=== PATIENT | male | born 1950 | race Caucasian/White ===

== ENCOUNTER 2016-10-05 15:32 | Inpatient (IN) | payer BC ==
[~2016-10-05] VITALS: Ht 177.8 cm; Wt 80.4 kg
[2016-10-05 16:52] LABS: HEMATOCRIT 47.9 % (39.0-50.0); HEMOGLOBIN 15.6 g/dl (14.0-18.0); IMMATURE GRANULOCYTES 0.6 % (0.0-1.0); MEAN CELL VOLUME 93.9 fL CALC (80.0-100.0); MEAN CORPUSCULAR HGB 30.6 pG CALC (26.0-32.0); MEAN CORPUSCULAR HGB CONC 32.6 g/L CALC (32.0-36.0); NEUT# 10.96 thou/uL (1.82-7.42); RED BLOOD COUNT 5.1 mill/uL (4.70-6.10); RED CELL DISTRI WIDTH 12.8 % (11.5-15.5)
[2016-10-05 17:09] LABS: URINE BILIRUBIN - DIPSTICK NEGATIVE (NEGATIVE); URINE BLOOD DIPSTICK TRACE-INTACT (NEGATIVE); URINE CLARITY CLEAR; URINE COLOR YELLOW; URINE GLUCOSE - DIPSTICK NEGATIVE (NEGATIVE); URINE KETONE NEGATIVE (NEGATIVE); URINE NITRITE - DIPSTICK NEGATIVE (Negative); URINE PH 5.5 (4.5-8.0); URINE PROTEIN - DIPSTICK NEGATIVE (NEG-TRACE); URINE SPECIFIC GRAVITY 1.025; URINE UROBILINOGEN - DIPSTICK 0.2 E.U./dL (0.2)
[2016-10-05 17:25] LABS: ALBUMIN 3.7 g/dL (3.2-5.0); CALCIUM 9.1 mg/dL (8.4-10.2); CREATININE 1.7 mg/dL (0.7-1.3); POTASSIUM 4.3 mmol/l (3.5-5.1); TOTAL PROTEIN 6.4 g/dL (6.3-8.2)
[2016-10-05 18:10] LABS: URINE LEUK ESTERASE NEGATIVE (NEGATIVE)
[2016-10-05 20:46] VITALS: BP 150/93
[2016-10-05 23:55] VITALS: BP 133/77
[2016-10-06] VITALS (9 sets, daily range): BP systolic 101–142; BP diastolic 60–82
[2016-10-06 06:13] LABS: HEMATOCRIT 42.1 % (39.0-50.0); MEAN CELL VOLUME 94.8 fL CALC (80.0-100.0); MEAN CORPUSCULAR HGB 31.5 pG CALC (26.0-32.0); MEAN CORPUSCULAR HGB CONC 33.3 g/L CALC (32.0-36.0); RED BLOOD COUNT 4.44 mill/uL (4.70-6.10)
[2016-10-06 06:26] LABS: CALCIUM 8.5 mg/dL (8.4-10.2); CREATININE 1.7 mg/dL (0.7-1.3); MAGNESIUM 2.2 mg/dL (1.6-2.3); POTASSIUM 4.5 mmol/l (3.5-5.1)
[2016-10-07 00:18] VITALS: BP 103/60
[2016-10-07 04:00] VITALS: BP 106/69
[2016-10-07 06:24] LABS: HEMATOCRIT 40.4 % (39.0-50.0); HEMOGLOBIN 13.1 g/dl (14.0-18.0); IMMATURE GRANULOCYTES 0.4 % (0.0-1.0); MEAN CELL VOLUME 97.1 fL CALC (80.0-100.0); MEAN CORPUSCULAR HGB 31.5 pG CALC (26.0-32.0); MEAN CORPUSCULAR HGB CONC 32.4 g/L CALC (32.0-36.0); NEUT# 4.38 thou/uL (1.82-7.42); RED BLOOD COUNT 4.16 mill/uL (4.70-6.10); RED CELL DISTRI WIDTH 13.1 % (11.5-15.5)
[2016-10-07 06:40] LABS: ANION GAP 9 (6-22 (CALC)); BUN 20 mg/dL (8-23); BUN/CREATININE RATIO 15 (12-20 (CALC)); CALCIUM 8.6 mg/dL (8.4-10.2); CARBON DIOXIDE 32 mmol/l (22-30); CHLORIDE 105 mmol/l (95-108); CREATININE 1.3 mg/dL (0.7-1.3); GFR 56 ML/MIN (>=60 (CALC)); GFR FOR AFR.AMER. > 60 ML/MIN (>=60 (CALC)); GLUCOSE 77 mg/dL (82-115); SODIUM 142 mmol/l (137-146)
[2016-10-07 07:45] VITALS: BP 111/71
== END 2016-10-06 12:55 | disposition home or self-care (01) | DRG 694 ==
LOC: ENPENDDIS → ED 15:32 → ED-I 19:00 → ED 19:32 → MS2 19:33
PROVIDERS: Emergency Medicine; Internal Medicine; ADMIT Internal Medicine; ATTEND Internal Medicine
PROC: 0T778DZ Dilation of Left Ureter with Intraluminal Device, Via Natural or Artificial Opening Endoscopic (ICD-10-PCS; principal; 2016-10-06)
PROC: BT1FZZZ Fluoroscopy of Left Kidney, Ureter and Bladder (ICD-10-PCS; 2016-10-06)
PROC: 0T7D7ZZ Dilation of Urethra, Via Natural or Artificial Opening (ICD-10-PCS; 2016-10-06)
DX: N13.2 Hydronephrosis with renal and ureteral calculous obstruction (principal); N17.9 Acute kidney failure, unspecified; C91.10 Chronic lymphocytic leukemia of B-cell type not having achieved remission; N20.0 Calculus of kidney; I10 Essential (primary) hypertension; G89.29 Other chronic pain; M54.9 Dorsalgia, unspecified; N40.0 Benign prostatic hyperplasia without lower urinary tract symptoms
CPT/HCPCS: J0692; Q9967

== ENCOUNTER 2016-10-15 12:31 | Day surgery (SDC) | payer BC ==
[~2016-10-15] VITALS: Ht 177.8 cm; Wt 81.6 kg
[2016-10-15] MEDS ORDERED: MELOXICAM7.5 MG PO (13:13)
[2016-10-15] MEDS ORDERED: LOSARTAN POT25 MG PO (13:13)
[2016-10-15] MEDS ORDERED: LIPITOR10 M1 PO (13:13)
[2016-10-15] MEDS ORDERED: TAMSULOSIN0.4 MG PO (13:14)
[2016-10-15 13:52] LABS: HEMATOCRIT 47.1 % (39.0-50.0); HEMOGLOBIN 15.6 g/dl (14.0-18.0); IMMATURE GRANULOCYTES 0.3 % (0.0-1.0); MEAN CELL VOLUME 93.6 fL CALC (80.0-100.0); MEAN CORPUSCULAR HGB CONC 33.1 g/L CALC (32.0-36.0); NEUT# 4.67 thou/uL (1.82-7.42); RED BLOOD COUNT 5.03 mill/uL (4.70-6.10)
[2016-10-15 14:05] LABS: ALBUMIN 4.4 g/dL (3.2-5.0); ALKALINE PHOSPHATASE 90 u/l (38-126); ANION GAP 14 (6-22 (CALC)); BUN 23 mg/dL (8-23); BUN/CREATININE RATIO 20 (12-20 (CALC)); CALCIUM 9.6 mg/dL (8.4-10.2); CARBON DIOXIDE 27 mmol/l (22-30); CHLORIDE 105 mmol/l (95-108); CREATININE 1.2 mg/dL (0.7-1.3); GFR > 60 ML/MIN (>=60 (CALC)); GFR FOR AFR.AMER. > 60 ML/MIN (>=60 (CALC)); GLUCOSE 87 mg/dL (82-115); POTASSIUM 4.7 mmol/l (3.5-5.1); SGOT/AST 26 u/l (19-48); SGPT/ALT 71 u/l (11-66); SODIUM 141 mmol/l (137-146); TOTAL PROTEIN 6.9 g/dL (6.3-8.2)
[2016-10-15 14:12] LABS: ACT PARTIAL THROMBO TIME 24.2 SECONDS (20.0-32.5); INTERNATIONAL NORMALIZED RATIO 0.9 RATIO (0.7-1.3); PROTHROMBIN TIME 10.2 SECONDS (9.0-12.5)
[2016-10-15 18:02] VITALS: BP 117/72
[2016-10-15] MEDS ORDERED: BACTRIM DS1 TAB PO (18:20)
[2016-10-15] MEDS ORDERED: PYRIDIUM200 MG PO (18:21)
[2016-10-15] MEDS ORDERED: TORADOL PO (18:21)
[2016-10-15] MEDS ORDERED: VICODIN ES1 TA1 PO (18:23)
[2016-10-15] MEDS ORDERED: COLACE100 MG PO (18:23)
[2016-10-16] MEDS ORDERED: CIPROFLOXACN500 MG PO (03:03)
[2016-10-16] MEDS ORDERED: ZOFRAN ODT4 MG PO (06:55)
== END 2016-10-15 19:00 | disposition home or self-care (01) | DRG 669 ==
LOC: ORM 12:31
PROVIDERS: ATTEND Urology
PROC: 0TC78ZZ Extirpation of Matter from Left Ureter, Via Natural or Artificial Opening Endoscopic (ICD-10-PCS; principal; 2016-10-15)
PROC: 0T778DZ Dilation of Left Ureter with Intraluminal Device, Via Natural or Artificial Opening Endoscopic (ICD-10-PCS; 2016-10-15)
PROC: BT1FZZZ Fluoroscopy of Left Kidney, Ureter and Bladder (ICD-10-PCS; 2016-10-15)
DX: N13.2 Hydronephrosis with renal and ureteral calculous obstruction (principal); N32.89 Other specified disorders of bladder; I10 Essential (primary) hypertension; N40.0 Benign prostatic hyperplasia without lower urinary tract symptoms
CPT/HCPCS: J2710; Q9967

== ENCOUNTER 2016-10-16 01:36 | Emergency (ER) | payer BC ==
[~2016-10-16] VITALS: Ht 177.8 cm; Wt 82.8 kg
[~2016-10-16 01:36] MED LIST: BACTRIM DS1 TAB PO; COLACE100 MG PO; LIPITOR10 M1 PO; LOSARTAN POT25 MG PO; MELOXICAM7.5 MG PO; PYRIDIUM200 MG PO; TAMSULOSIN0.4 MG PO; TORADOL PO; VICODIN ES1 TA1 PO
[2016-10-16 02:46] LABS: URINE BILIRUBIN - DIPSTICK NEGATIVE (NEGATIVE); URINE BLOOD DIPSTICK LARGE (NEGATIVE); URINE COLOR YELLOW; URINE GLUCOSE - DIPSTICK NEGATIVE (NEGATIVE); URINE KETONE NEGATIVE (NEGATIVE); URINE LEUK ESTERASE NEGATIVE (NEGATIVE); URINE PH 5.5 (4.5-8.0); URINE PROTEIN - DIPSTICK 30 mg/dL (NEG-TRACE); URINE SPECIFIC GRAVITY <=1.005
[2016-10-16 02:47] LABS: URINE CLARITY SLIGHT CLOUDY; URINE NITRITE - DIPSTICK POSITIVE (Negative)
[2016-10-16 02:56] LABS: URINE SQUAMOUS EPITHELIAL CELL FEW EPI/hpf (0-FEW)
[2016-10-16 02:57] LABS: URINE BACTERIA FEW hpf
[2016-10-16] MEDS ORDERED: CIPROFLOXACN500 MG PO (03:03)
[2016-10-16 03:24] VITALS: BP 114/74
[2016-10-16] MEDS ORDERED: ZOFRAN ODT4 MG PO (06:55)
== END 2016-10-16 03:24 | disposition home or self-care (01) | DRG 696 ==
LOC: ED 01:36
PROVIDERS: Emergency Medicine
PROC: 0T9B70Z Drainage of Bladder with Drainage Device, Via Natural or Artificial Opening (ICD-10-PCS; principal; 2016-10-16)
PROC: 0T9B70Z Drainage of Bladder with Drainage Device, Via Natural or Artificial Opening (ICD-10-PCS; 2016-10-16)
DX: R33.9 Retention of urine, unspecified (principal); N39.0 Urinary tract infection, site not specified; R11.0 Nausea; Z98.890 Other specified postprocedural states

== ENCOUNTER 2016-10-16 06:06 | Emergency (ER) | payer BC ==
[~2016-10-16] VITALS: Ht 177.8 cm; Wt 82.8 kg
[~2016-10-16 06:06] MED LIST changes: +CIPROFLOXACN500 MG PO
[2016-10-16] MEDS ORDERED: ZOFRAN ODT4 MG PO (06:55)
[2016-10-16 07:36] VITALS: BP 120/85
== END 2016-10-16 07:45 | disposition home or self-care (01) | DRG 696 ==
LOC: ED 06:06
PROC: 0T9B70Z Drainage of Bladder with Drainage Device, Via Natural or Artificial Opening (ICD-10-PCS; principal; 2016-10-16)
DX: R33.9 Retention of urine, unspecified (principal); R11.0 Nausea; Z98.890 Other specified postprocedural states

== ENCOUNTER → 2018-02-24 | Outpatient (REF) | payer MEDICARE ==
[~2018-02-24] MED LIST changes: +ZOFRAN ODT4 MG PO
[2018-02-24 09:40] LABS: HEMATOCRIT 48.8 % (39.0-50.0); HEMOGLOBIN 16.1 g/dl (14.0-18.0); IMMATURE GRANULOCYTES 0.3 % (0.0-5.0); MEAN CELL VOLUME 94.4 fL CALC (80.0-100.0); MEAN CORPUSCULAR HGB 31.1 pG CALC (26.0-32.0); NEUT# 4.52 thou/uL (1.82-7.42); RED BLOOD COUNT 5.17 mill/uL (4.70-6.10)
[2018-02-24 10:01] LABS: ALBUMIN 3.9 g/dL (3.2-5.0); ALKALINE PHOSPHATASE 81 u/l (38-126); ANION GAP 10 (6-22 (CALC)); BILIRUBIN, TOTAL 1.2 mg/dL (0.0-1.4); BUN 19 mg/dL (8-23); BUN/CREATININE RATIO 20 (12-20 (CALC)); CALCULATED LDLCHOLESTEROL 77 mg/dL (62-129 (CALC)); CARBON DIOXIDE 29 mmol/l (22-30); CHLORIDE 108 mmol/l (95-108); CHOLESTEROL HDL RATIO 3.2 (<4.4 (CALC)); GFR > 60 ML/MIN (>=60 (CALC)); GFR FOR AFR.AMER. > 60 ML/MIN (>=60 (CALC)); HDL CHOLESTEROL 48 mg/dL (>=40); POTASSIUM 4.2 mmol/l (3.5-5.1); SGOT/AST 19 u/l (19-48); SODIUM 142 mmol/l (137-146); TOTAL CHOLESTEROL 154 mg/dl (0-199); TOTAL PROTEIN 6.3 g/dL (6.3-8.2); TOTAL TRIGLYCERIDES 144 mg/dl (30-149); VLDL CHOLESTROL 29 mg/dl (4-45 (CALC))
== END | disposition home or self-care (01) ==
LOC: LAB 08:32
PROVIDERS: ATTEND Internal Medicine
DX: C91.10 Chronic lymphocytic leukemia of B-cell type not having achieved remission (principal); E78.49 Other hyperlipidemia

== ENCOUNTER 2022-05-08 16:35 | Inpatient (IN) | payer MEDICARE ==
[~2022-05-08] VITALS: Ht 177.8 cm; Wt 82.0 kg
[2022-05-08] VITALS (13 sets, daily range): BP systolic 92–164; BP diastolic 52–90
--- NOTE | 2022-05-08 16:35 | NUR ---
PT TO ROOM W/STEADY GAIT.
[2022-05-08 17:39] LABS: HEMATOCRIT 43.3 % (39.0-50.0); HEMOGLOBIN 14.5 g/dl (14.0-18.0); IMMATURE GRANULOCYTES 0.1 % (0.0-5.0); MEAN CELL VOLUME 94.7 fL CALC (80.0-100.0); MEAN CORPUSCULAR HGB 31.7 pG CALC (26.0-32.0); MEAN CORPUSCULAR HGB CONC 33.5 g/dL CAL (32.0-36.0); NEUT# 6.03 thou/uL (1.82-7.42); RED BLOOD COUNT 4.57 mill/uL (4.70-6.10); RED CELL DISTRI WIDTH 12.5 % (11.5-15.5)
--- NOTE | 2022-05-08 17:45 | NUR ---
PT ADVISED OF CURRENT POC. PT/SPOUSE VOICED UNDERSTANDING.
[2022-05-08 17:52] LABS: ALBUMIN 3.6 g/dL (3.2-5.0); ALKALINE PHOSPHATASE 79 u/l (38-126); ANION GAP 12 (6-22 (CALC)); BUN 19 mg/dL (8-23); BUN/CREATININE RATIO 17 (12-20 (CALC)); CARBON DIOXIDE 29 mmol/l (22-30); CHLORIDE 107 mmol/l (95-108); CREATININE 1.1 mg/dL (0.7-1.3); GFR FOR AFR.AMER. > 60 ML/MIN (>=60 (CALC)); GFR OTHER RACES > 60 ML/MIN (>=60 (CALC)); POTASSIUM 4.1 mmol/l (3.5-5.1); SGOT/AST 38 u/l (19-48); SODIUM 144 mmol/l (137-146); TOTAL PROTEIN 6.4 g/dL (6.3-8.2)
[2022-05-08 17:55] LABS: BILIRUBIN, TOTAL 0.3 mg/dL (0.0-1.4)
[2022-05-08 18:02] LABS: URINE BILIRUBIN - DIPSTICK NEGATIVE (NEGATIVE); URINE BLOOD DIPSTICK TRACE-INTACT (NEGATIVE); URINE COLOR YELLOW; URINE GLUCOSE - DIPSTICK NEGATIVE (NEGATIVE); URINE KETONE NEGATIVE (NEGATIVE); URINE LEUK ESTERASE NEGATIVE (NEGATIVE); URINE PROTEIN - DIPSTICK 30 mg/dL (NEG-TRACE); URINE SPECIFIC GRAVITY >=1.030; URINE UROBILINOGEN - DIPSTICK 0.2 E.U./dL (0.2)
[2022-05-08 18:03] LABS: URINE NITRITE - DIPSTICK NEGATIVE (Negative)
[2022-05-08 18:09] LABS: URINE RBC 0-2 RBC/hpf (0-5); URINE WBC 0-2 WBC/hpf (0-5)
--- NOTE | 2022-05-08 18:45 | NUR ---
PT SITTING IN AWAITING RESULTS AT THIS TIME. CALL LIGHT WITHIN REACH.
--- NOTE | 2022-05-08 19:07 | NUR ---
PT AWARE OF COVID POSITIVE AND RESULTS OF CXR.
--- NOTE | 2022-05-08 19:15 | NUR ---
ASSUMED CARE OF PT. PT RESTING. AT BS.
--- NOTE | 2022-05-08 20:00 | NUR ---
REPORT CALLED TO MED [facility].
--- NOTE | 2022-05-08 20:30 | NUR ---
PT TRANSFERRED TO [facility] 263
--- NOTE | 2022-05-08 22:30 | NUR ---
pt arrived to the unit via stretcher to room 263. pt is alert and oriented and able to make needs known. Respiration labored and o2 sat 96% on 3lnc. Coarse lung sounds noted. pt has a non-productive wet cough noted. face is slightly reddish. Pt had tempt 102.0 rpior to admission to unit and was given Ibuprofen. Pt is ambulatory with standby assist. continent of bowle and bladder. Did not allow this nurse to assess skin but states he only has bruising on bilat arms. admission assessment completed and pt in bed with eyes open. 20gauge peripheral line in left ac with no complications noted. Call light within reach. Will continue to observe
[2022-05-09] VITALS (10 sets, daily range): BP systolic 111–133; BP diastolic 64–97
[2022-05-09 05:50] LABS: HEMATOCRIT 41.9 % (39.0-50.0); HEMOGLOBIN 13.5 g/dl (14.0-18.0); IMMATURE GRANULOCYTES 0.6 % (0.0-5.0); MEAN CORPUSCULAR HGB 31.3 pG CALC (26.0-32.0); MEAN CORPUSCULAR HGB CONC 32.2 g/dL CAL (32.0-36.0); NEUT# 4.51 thou/uL (1.82-7.42); RED BLOOD COUNT 4.32 mill/uL (4.70-6.10); RED CELL DISTRI WIDTH 12.8 % (11.5-15.5)
[2022-05-09 06:18] LABS: ALKALINE PHOSPHATASE 62 u/l (38-126); ANION GAP 8 (6-22 (CALC)); BILIRUBIN, TOTAL 0.3 mg/dL (0.0-1.4); BUN 17 mg/dL (8-23); BUN/CREATININE RATIO 17 (12-20 (CALC)); CARBON DIOXIDE 27 mmol/l (22-30); CHLORIDE 110 mmol/l (95-108); GFR FOR AFR.AMER. > 60 ML/MIN (>=60 (CALC)); GFR OTHER RACES > 60 ML/MIN (>=60 (CALC)); SGOT/AST 28 u/l (19-48); SODIUM 142 mmol/l (137-146)
--- NOTE | 2022-05-09 06:22 | NUR ---
Pt in bed with eyes open and noted shivering stating he doesnt feel cold or chilled but cant stop shivering . tempt checked and 99.0 TP. Tylenol was administered and pt was lightly covered. Vitals stable. call light is within reach. Normal saline still running at 125ml/hr and pt tolerating well. Productive cough noted and white thick phleygm noted. Will continue to observe. denies respiratory distress and respiration even and non labored. Bed in low position and call light within reach. pt using urinal with no complications noted.
[2022-05-09 06:41] LABS: ALBUMIN 2.6 g/dL (3.2-5.0); C-REACTIVE PROTEIN 13.4 mg/dL (0-0.9); TOTAL PROTEIN 4.7 g/dL (6.3-8.2)
--- NOTE | 2022-05-09 07:39 | NUR ---
GOT REPORT FROM REAL PROPERTY EVALUATOR NURSE AT BEDSIDE. PATIENT IS SLEEPING. WOKE PATIENT AND INFORMED PATINT THAT I WILL BE NURSE TAKING OVER. PATIENT DENIES ANY DISTRESS JUST DOES NOT FEEL WELL. FALL PRECAUTIONS IN PLACE. CALL LIGHT AND BEDSIDE TABLE WITHIN REACH. ADVISED TO CALL IF PATIENT NEEDED ANYTHING. PATIENT VERBALIZED UNDERSTANDING.
[2022-05-09] MEDS ORDERED: PREDNISONE5 MG PO (11:47)
--- NOTE | 2022-05-09 16:00 | NUR ---
PATIENT IS DOWN IN IMAGING.
--- NOTE | 2022-05-09 16:00 | NUR ---
PATIENT IS LAYING DOWN IN BED SLEEPING. PATIENT WOKE I CAME INTO ROOM DENIES ANY DISTRESS. JUST VERY TIRED. CALL LIGHT AND BEDSIDE TABLE ARE WITH IN REACH. ADVISED TO CALL IF HE NEEDS ANYTHING. PATIENT VERBALIZED UNDERSTANDING.
[2022-05-10] VITALS (8 sets, daily range): BP systolic 120–138; BP diastolic 64–88
--- NOTE | 2022-05-10 00:10 | NUR ---
pt was observed resting with eyes closed. o2 stat was in high 90s. no sign of distress noted at this tiime. call light in reach and bed alarm on.
--- NOTE | 2022-05-10 04:33 | NUR ---
pt denies pain, no sign of acute distress. o2 saturation remained in high 90s. pt denies any unmet needs at this time. call light in reach, bed alarm on.
[2022-05-10 05:41] LABS: HEMATOCRIT 39.3 % (39.0-50.0); HEMOGLOBIN 13.1 g/dl (14.0-18.0); MEAN CELL VOLUME 95.6 fL CALC (80.0-100.0); MEAN CORPUSCULAR HGB 31.9 pG CALC (26.0-32.0); MEAN CORPUSCULAR HGB CONC 33.3 g/dL CAL (32.0-36.0); RED BLOOD COUNT 4.11 mill/uL (4.70-6.10); RED CELL DISTRI WIDTH 12.4 % (11.5-15.5)
[2022-05-10 06:05] LABS: ALBUMIN 2.6 g/dL (3.2-5.0); ALKALINE PHOSPHATASE 42 u/l (38-126); ANION GAP 8 (6-22 (CALC)); BUN 17 mg/dL (8-23); BUN/CREATININE RATIO 22 (12-20 (CALC)); CARBON DIOXIDE 26 mmol/l (22-30); CHLORIDE 110 mmol/l (95-108); CREATININE 0.8 mg/dL (0.7-1.3); GFR FOR AFR.AMER. > 60 ML/MIN (>=60 (CALC)); GFR OTHER RACES > 60 ML/MIN (>=60 (CALC)); POTASSIUM 4.3 mmol/l (3.5-5.1); SGOT/AST 39 u/l (19-48); SODIUM 140 mmol/l (137-146); TOTAL PROTEIN 4.8 g/dL (6.3-8.2)
[2022-05-10 06:06] LABS: BILIRUBIN, TOTAL 0.6 mg/dL (0.0-1.4)
--- NOTE | 2022-05-10 08:00 | NUR ---
RC'D REPORT FROM NIGHTSHIFT, PT SLEEPING, PT STATED HE DID NOT SLEEP MUCH LAST NIGHT AND WOULD LIKE TO SLEEP MORE TODAY, PT LUNG SOUNDS ARE COARSE, PT ON 3L NC, PT CURRENTLY DENIES ANY COMPLAINTS AT THIS TIME
--- NOTE | 2022-05-10 12:16 | NUR ---
pt in bedside recliner eating lunch, no other complaints
--- NOTE | 2022-05-10 16:06 | NUR ---
pt [facility] recliner, report given to pura
--- NOTE | 2022-05-10 19:55 | NUR ---
PT IN ROOM ON AIRBORN PRECAUTIONS. PT NOTED LAYING IN BED HIGH FOWLERS. PT IS A/OX4. PT DENIES ANY PAIN AT THIS TIME. PRODUCTIVE COUGH WITHNESSED FROM PT WITH CLEAR/YELLOW SPUTUM. ENCOURAGED PT TO USE INCENTIVE SPIROMETER AND EDUCATED OF BENEFITS AND DEEP COUGH. PT ASSESSMENT COMPLATED AND IV SITE APPEARS HEALTHY ON SALINE LOCK. SAFETY PRECAUTIONS IN PLACE AND CALL LIGHT WITHIN REACH.
[2022-05-11] VITALS (7 sets, daily range): BP systolic 138–146; BP diastolic 81–88
--- NOTE | 2022-05-11 00:29 | NUR ---
PT IS LAYING IN BED FOWLERS, WATCHING TV. PT DENIES ANY PAIN OR DISCOMFORT AT THIS TIME. CALL LIGHT WITHIN REACH AND SAFETY PRECAUTIONS IN PLACE. PT STILL ON AIRBORN PRECAUTIONS.
--- NOTE | 2022-05-11 04:44 | NUR ---
PT SLEEPING IN BED. NO S/S OF DISTRESS OR DISCOMFORT. PT IS NOT WEARING NASAL CANNULA BUT O2 SATS >90. SAFETY PRECAUTIONS IN PLACE.
--- NOTE | 2022-05-11 08:00 | NUR ---
GOT REPORT FROM MORTGAGE CLERK NURSE. PATIENT ASSESSED. AOX4. PATIENT HAS FALL PRECAUTIONS IN PLACE. CALL LIGHT AND BED SIDE TABLE WITH IN REACH. ADVISED TO CALL IF NEEDING ANYTHING.
--- NOTE | 2022-05-11 12:00 | NUR ---
PATIENT IS SITTING UP IN BED EATING. NO SXS OF DISTRESS. NO CONCERNS OR QUESTIONS FROM PATIENT AT THIS TIME . ADVISED TO CALL IF NEEDING ANYTHING. PATIENT VERBALIZED UNDERSTANDING.
--- NOTE | 2022-05-11 20:00 | NUR ---
PT NOTED SITTING UP IN CHAIR WITH FEET ELEVATED. PT DENIES ANY PAIN OR DISCOMFORT AT THIS TIME. PRODUCTIVE COUGH PRESENT AT THIS TIME. PT ASSESSMENT COMPLETED AND IV SITE ASSESSED ON SALINE LOCK IN RAC. IV SITE APPEARS HEALTHY WITH ADEQUATE BLOOD RETURN. RE-EDUCATED PT ON USE OF INCENTIVE SPIROMETER AND MED SCHEDULE FOR TONIGHT. CALL LIGHT WITHIN REACH AND SAFETY PRECAUTIONS IN PLACE.
--- NOTE | 2022-05-11 23:33 | NUR ---
PT IN BED SLEEPIING FOWLERS POSITION. NO S/S OF DISTRESS. CALL LIGHT WITHIN REACH AND SAFETY PRECAUTIONS IN PLACE.
[2022-05-12] VITALS: BP 144/78
[2022-05-12 00:10] VITALS: BP 144/78
[2022-05-12 03:46] VITALS: BP 131/80
[2022-05-12 04:00] VITALS: BP 131/80
[2022-05-12 07:03] VITALS: BP 117/67
--- NOTE | 2022-05-12 07:30 | NUR ---
PT IS SEMIFOLOWERS IN BED, PT IS A&OX3, NAD, VS ASSESSED, OPT FOLLOWS COMMANDS AND GAIT IS STEADY. PT HAS PRODUCTIVE COUGH, AFEBRILE, PT HAS NO C/O SOB, BODY ACHES OR ANY OTHER COVID-LIKE SX. PT HAS CALL LIGHT NEAR. PT ABLE TO MAKE HIS NEEDS KNOWN. WILL CONTINUE TO MONITOR.
[2022-05-12 10:50] VITALS: BP 114/66
[2022-05-12] MEDS ORDERED: DEXAMETHASON6 MG PO (11:55)
[2022-05-12] MEDS ORDERED: VIBRAMYCIN100 M2 PO (11:56)
--- NOTE | 2022-05-12 11:57 | NUR ---
PT HAS NO CHANGE TO ASSESSMENT. PT HAS CALL LIGHT NEAR.
--- NOTE | 2022-05-12 14:10 | NUR ---
PT HAS BEEN D/C PER ORDER, PT HAS ALL BELONGINGS, AND D/C INSTRUCTIONS. PT HAS BEEN ASSISTED BY A VOLUNTEER VIA W/C. IV AND TELE MONITOR HAVE BEEN REMOVED.
--- NOTE | 2022-05-14 09:37 | NUR ---
PPneumonia post discharge follow up call completed today. Pt. states he is doing well. No fever, chills, or SOB. Cough is also improving. Pt. is taking prescribed medication without issue. Follow up appointment withPCP will be scheduled today. No needs or concerns expressed at this time.
== END 2022-05-12 13:57 | disposition home or self-care (01) | DRG 177 ==
LOC: ED 16:35 → ED-I 18:50 → ED 19:05 → MS2 19:06
PROVIDERS: Emergency Medicine; Nurse Practitioner Family; ADMIT Internal Medicine; ATTEND Internal Medicine
DX: U07.1 COVID-19 (principal); J12.82 Pneumonia due to coronavirus disease 2019; J96.01 Acute respiratory failure with hypoxia; C91.11 Chronic lymphocytic leukemia of B-cell type in remission; I10 Essential (primary) hypertension; M79.7 Fibromyalgia; E78.5 Hyperlipidemia, unspecified; M35.3 Polymyalgia rheumatica; Z79.52 Long term (current) use of systemic steroids
CPT/HCPCS: G0378; J1650; Q9967